=== PATIENT | female | born 1975 | race Caucasian/White ===

== ENCOUNTER 2016-12-19 12:23 | Emergency (ER) | payer OTHER ==
[~2016-12-19] VITALS: Ht 157.5 cm; Wt 71.8 kg
[~2016-12-19 12:23] MED LIST: LORA-474 PO; LORTA5 PO; TOPR25TA2 PO; ZITHTAB6 PO
[2016-12-19 12:28] VITALS: BP 116/79; PULSE 97; RESP 15; TEMP 98.2; O2SAT 97
[2016-12-19] MEDS ORDERED: SODIUM CHLOR 0.9% 1000 ML INJ 1,000 ML IV SCH (12:42)
[2016-12-19] MEDS ORDERED: ONDANSETRON HCL 4 MG/2 ML VIAL IVP ONE (12:45)
[2016-12-19] MEDS ORDERED: SODIUM CHLORIDE 0.9% FLUSH 10 ML FLUSH IV FLUSH PRN (12:45)
[2016-12-19] MEDS ORDERED: LACTULOSE SYRUP 20 GM/30 ML CUP PO ONE (12:45)
--- NOTE | 2016-12-19 13:02 | PD ---
HPI Chief Complaint: GI Complaint Time Seen by Provider: 12:37 Travel History International Travel<30 days: No Contact w/Intl Traveler<30days: No Traveled to known affect area: No History of Present Illness HPI Patient is a 41-year-old female who presents to emergency room with complaints of constipation. Patient reports that she has interstitial cystis, reports that she was put on percocet 3 weeks ago for pain control. Patient reports that she took Percocet for 1 week and developed constipation. Patient reports that she has not been able to have a normal bowel movement for the past 2 weeks. Patient reports that she has tried enemas as well as [id number] medications for constipation, reports no relief of symptoms. Patient denies any nausea or vomiting, denies any abdominal pain at this time. Denies fevers or chills, reports that she is concerned as she is unable to have a bowel movement for the past 2 weeks. Patient reports that she normally has daily bowel movements. PFSH Past Medical History Anxiety: Yes Diminished Hearing: No Gastrointestinal Disorders: Yes (Ulcerative colitis) Genitourinary: Yes (INTERSTITIAL CYSTITIS) Hypertension: Yes Tetanus Vaccination: Unknown Influenza Vaccination: No ?: Unknown LMP: 1 MONTH Past Surgical History Abdominal Surgery: Yes (Laproscopy for DX of tubal ) Social History Alcohol Use: No Tobacco Use: No Substance Use: No Allergies-Medications (Allergen,Severity, Reaction): Coded Allergies: Sulfa (Verified Allergy, Severe, 12/19/16) Reported Meds & Prescriptions Reported Meds & Active Scripts Active Miralax Powder (Polyethylene Glycol 3350 Powder) 17 Gm Powd 17 Gm PO BID Mix and dissolve one measuring cap-ful (17 grams) in water or juice. Hydrocodone/Acetaminophen 5 mg/325 mg 1 Tab Tab 1 Tab PO Q4-6HPRN Zithromax Tri-Elmer (Azithromycin) Tab 500 Mg PO DIRECTED 3 Days 1 TAB (500 MG) PO DAILY FOR 3 DAYS. Reported Ativan (Lorazepam) 1 Mg Tab 1 Mg PO ONCE Toprol Xl (Metoprolol Succinate) 25 Mg Tabcr 25 Mg PO BID Review of Systems General / Constitutional: No: Fever Eyes: No: Visual changes HENT: No: Headaches Cardiovascular: No: Chest Pain or Discomfort Respiratory: No: Shortness of Breath Gastrointestinal: Positive: Constipation, No: Abdominal Pain Genitourinary: No: Dysuria Musculoskeletal: No: Pain Skin: No Rash Neurologic: No: Weakness Psychiatric: No: Depression Endocrine: No: Polydipsia Hematologic/Lymphatic: No: Easy Bruising Physical Exam Narrative GENERAL: nad, nontoxic SKIN: Focused skin assessment warm/dry. HEAD: Atraumatic. Normocephalic. EYES: Pupils equal and round. No injection or drainage. ENT: No nasal bleeding or discharge. Mucous membranes pink and moist. NECK: Trachea midline. No JVD. CARDIOVASCULAR: Regular rate and rhythm. No murmur appreciated. RESPIRATORY: No accessory muscle use. Clear to auscultation. Breath sounds equal bilaterally. GASTROINTESTINAL: Abdomen soft, non-tender, nondistended. Hepatic and splenic margins not palpable. RECTAL EXAM: patient with soft stool, no stool impaction MUSCULOSKELETAL: No obvious deformities. No clubbing. No cyanosis. No edema. NEUROLOGICAL: Awake and alert. Normal speech. PSYCHIATRIC: Appropriate mood and affect; insight and judgment normal. Data Data Last Documented VS Vital Signs Date Time Temp Pulse Resp B/P Pulse Ox O2 Delivery O2 Flow Rate FiO2 12/19/16 12:28 98.2 97 15 116/79 97 Orders Complete Blood Count With Diff (12/19/16 12:42) Comprehensive Metabolic Panel (12/19/16 12:42) Prothrombin Time / Inr (Pt) (12/19/16 12:42) Act Partial Throm Time (Ptt) (12/19/16 12:42) Urinalysis - C+S If Indicated (12/19/16 12:42) Iv Access Insert/Monitor (12/19/16 12:42) Ondansetron Inj (Zofran Inj) (12/19/16 12:45) Sodium Chlor 0.9% 1000 Ml Inj (Ns 1000 M (12/19/16 12:42) Sodium Chloride 0.9% Flush (Ns Flush) (12/19/16 12:45) Abdomen, Kub Only (12/19/16 12:42) Ed Urine Pregnancytest Poc (12/19/16 12:42) Lactulose Liq (Lactulose Liq) (12/19/16 12:45) Enema (12/19/16 14:15) Ketorolac Inj (Toradol Inj) (12/19/16 14:30) Labs Laboratory Tests Test 12/19/16 12/19/16 13:08 13:20 White Blood Count 5.1 TH/MM3 Red Blood Count 4.64 MIL/MM3 Hemoglobin 12.7 GM/DL Hematocrit 38.0 % Mean Corpuscular Volume 81.8 FL Mean Corpuscular Hemoglobin 27.3 PG Mean Corpuscular Hemoglobin 33.4 % Concent Red Cell Distribution Width 14.7 % Platelet Count 224 TH/MM3 Mean Platelet Volume 8.3 FL Neutrophils (%) (Auto) 62.5 % Lymphocytes (%) (Auto) 26.0 % Monocytes (%) (Auto) 4.8 % Eosinophils (%) (Auto) 6.2 % Basophils (%) (Auto) 0.5 % Neutrophils # (Auto) 3.3 TH/MM3 Lymphocytes # (Auto) 1.3 TH/MM3 Monocytes # (Auto) 0.2 TH/MM3 Eosinophils # (Auto) 0.3 TH/MM3 Basophils # (Auto) 0.0 TH/MM3 CBC Comment DIFF FINAL Differential Comment Prothrombin Time 11.4 SEC Prothromb Time International 1.0 RATIO Ratio Activated Partial 28.9 SEC Thromboplast Time Sodium Level 141 MEQ/L Potassium Level 4.2 MEQ/L Chloride Level 107 MEQ/L Carbon Dioxide Level 25.2 MEQ/L Anion Gap 9 MEQ/L Blood Urea Nitrogen 7 MG/DL Creatinine 0.81 MG/DL Estimat Glomerular Filtration 77 ML/MIN Rate Random Glucose 107 MG/DL Calcium Level 8.3 MG/DL Total Bilirubin 0.4 MG/DL Aspartate Amino Transf 23 U/L (AST/SGOT) Alanine Aminotransferase 20 U/L (ALT/SGPT) Alkaline Phosphatase 63 U/L Total Protein 7.2 GM/DL Albumin 3.6 GM/DL Urine Collection Type CLEAN CATCH Urine Color STRAW Urine Turbidity SLIGHTY CLOUDY Urine pH 6.0 Urine Specific [place] 1.004 Urine Protein NEG mg/dL Urine Glucose (UA) NEG mg/dL Urine Ketones NEG mg/dL Urine Occult Blood NEG Urine Nitrite NEG Urine Bilirubin NEG Urine Leukocyte Esterase NEG Urine Squamous Epithelial 6-8 /hpf Cells Microscopic Urinalysis Comment CULT NOT INDICATED MDM Medical Decision Making Medical Screen Exam Complete: Yes Emergency Medical Condition: Yes Interpretation(s) Vital Signs Date Time Temp Pulse Resp B/P Pulse Ox O2 Delivery O2 Flow Rate FiO2 12/19/16 12:28 98.2 97 15 116/79 97 Differential Diagnosis Constipation, small bowel obstruction Narrative Course Patient is a 41-year-old female who presents to emergency room with complaints of constipation. She reports that she was started on Percocet 3 weeks ago for treatment of pain from interstitial cystitis, patient reports that for the past 2 weeks, she has been unable to have a bowel movement despite taking over-the- counter medications. Patient reports no problems eating, denies nausea or vomiting, concern as she has not been able to have a bowel movement. Overall, patient is nontoxic and evaluation, abdomen is soft, nontender, nondistended, no peritoneal signs. Patient denies any nausea or vomiting this time. Plan to obtain lab work and give a dose of lactulose. X-ray of the abdomen ordered to evaluate for constipation. I do not believe that patient warrants a CT of her abdomen as she is completely asymptomatic with her constipation at this time. Patient agreeable to current plan of care CBC & BMP Diagram 12/19/16 13:08 KUB: Moderate stool in the right side of the colon will have her follow up with gi as outpt signs and symptoms of when to return to ER reviewed with patient in detail Diagnosis Primary Impression: Constipation Qualified Code: K59.00 - Constipation, unspecified constipation type Patient Instructions: General Instructions Additional Instructions: Please follow-up with the primary care doctor in 2-3 days Returns to emergency room as needed Please call primer expeditor and drier for earliest follow up appointment Med/Other Pt SpecificInfo: Prescription(s) given Scripts Polyethylene Glycol 3350 Powder (Miralax Powder)17 Gm Powd17 Gm PO BID #1 BOTTLE Ref 0 Mix and dissolve one measuring cap-ful (17 grams) in water or juice. Prov:Mony Blanton DO 12/19/16 Disposition: 01 DISCHARGE HOME Condition: Stable Mony Blanton DO Dec 19, 2016 13:02
[2016-12-19 13:23] LABS: AUTOMATED NEUTROPHIL # 3.3 TH/MM3 (1.8-7.7); BASOPHIL % 0.5 % (0.0-2.0); EOSINOPHIL # 0.3 TH/MM3 (0-0.4); EOSINOPHIL % 6.2 % (0.0-4.0); HEMO FLAGS DIFF FINAL; LYMPHOCYTE # 1.3 TH/MM3 (1.0-4.8); MEAN CELL VOLUME 81.8 FL (80.0-100.0); MEAN CORPUSCULAR HEMOGLOBIN 27.3 PG (27.0-34.0); MEAN CORPUSCULAR HGB CONC 33.4 % (32.0-36.0); MONO % 4.8 % (0.0-8.0); NEUT % 62.5 % (16.0-70.0); PLATELET COUNT 224 TH/MM3 (150-450); RED BLOOD COUNT 4.64 MIL/MM3 (4.00-5.30); RED CELL DISTRIBUTION WIDTH 14.7 % (11.6-17.2); WHITE BLOOD COUNT 5.1 TH/MM3 (4.0-11.0)
[2016-12-19 13:27] LABS: BLOOD, URINE NEG (NEG); GLUCOSE,URINE NEG (NEG); KETONE, URINE NEG (NEG); NITRITE,URINE NEG (NEG)
[2016-12-19 13:31] LABS: CHLORIDE 107 MEQ/L (98-107); POTASSIUM 4.2 MEQ/L (3.5-5.1); SODIUM (NA) 141 MEQ/L (136-145)
[2016-12-19 13:31] LABS: METHOD OF COLLECTION CLEAN CATCH; URINE COLOR STRAW (YELLW/STRAW)
[2016-12-19 13:32] LABS: COMMENT (UR) CULT NOT INDICATED; CULTURE IF INDICATED CULT NOT INDICATED
[2016-12-19 13:34] LABS: ANION GAP 9 MEQ/L (5-15); BICARBONATE 25.2 MEQ/L (21.0-32.0); BLOOD UREA NITROGEN 7 MG/DL (7-18)
[2016-12-19 13:36] LABS: APTT (PATIENT) 28.9 SEC (24.3-30.1); PROTHROMBIN TIME - PATIENT 11.4 SEC (9.8-11.6)
[2016-12-19 13:37] LABS: ALT (GPT) 20 U/L (10-53); AST (GOT) 23 U/L (15-37); GLOMERULAR FILTRATION RATE 77 ML/MIN (>89)
[2016-12-19 13:39] LABS: TOTAL BILIRUBIN ADULT 0.4 MG/DL (0.2-1.0)
[2016-12-19 13:40] LABS: ALKALINE PHOSPHATASE 63 U/L (45-117)
--- NOTE | 2016-12-19 14:13 | RADHPO ---
EXAM DATE/TIME: 12/19/2016 12:51 [facility] COMPARISON: No previous studies available for comparison. INDICATIONS : Constipation and abdomen pain MEDICAL HISTORY : Ulcerative colitis. SURGICAL HISTORY : None. ENCOUNTER: Initial ACUITY: 2 weeks PAIN SCORE: 8/10 LOCATION: Bilateral abdomen FINDINGS: There is a moderate amount of stool seen in the right side of the colon. Significant distention of t he left side of the colon is not clearly identified. Dilated small bowel is not seen. There are nguyễn cifications in the pelvis bilaterally likely related to phleboliths although they are nonspecific. T here does appear to be some lower lumbar facet hypertrophy at the L4-L5 level. CONCLUSION: Moderate stool in the right side of the colon. Patrick Carpio MD on December 19, 2016 at 14:03 Board Certified Radiologist. This report was verified electronically.
[2016-12-19] MEDS ORDERED: MIRA33504 PO (14:18)
[2016-12-19] MEDS ORDERED: KETOROLAC TROMETHAMINE 30 MG/ML (IVP) VIAL IV PUSH ONE (14:30)
== END 2016-12-19 14:48 | disposition home or self-care (01) ==
LOC: PHED 12:23
DX: K59.00 Constipation, unspecified (principal); N30.10 Interstitial cystitis (chronic) without hematuria; I10 Essential (primary) hypertension; F41.9 Anxiety disorder, unspecified
CPT/HCPCS: 74000; 80053; 81001; 84703; 85025; 85610; 85730; 96361; 96374; 96375; 99283; J1885; J2405; J7030